=== PATIENT | male | born 1980 | race Caucasian/White ===

== ENCOUNTER → 2017-03-03 | Outpatient (CLI) | payer OTHER ==
--- NOTE | 2017-03-03 18:41 | REP ---
Maxillofacial CT without IV contrast: Axial images are acquired with helical scanning and a reformatted in the coronal projection. There are no comparisons. There is complete opacification of the left frontal sinus, left ethmoid sinus air cells and left maxillary sinus and left nasopharynx. This could be from secretions, polyps or combination. The posterior O medial wall of the left maxillary sinus appears eroded. The left middle turbinate appears eroded. The left ostiomeatal complex is completely opacified and the uncinate process appears eroded. Findings are compatible with chronic left pansinusitis. There is mild mucosal thickening inferiorly in the right maxillary sinus. The right ethmoid sinuses appear clear. The right frontal sinus is clear. The sphenoid sinuses are clear bilaterally. The mastoid air cells are clear bilaterally. The right ostiomeatal complex is patent. The ocular globes and lenses are unremarkable. The periorbital fat is normal bilaterally. The skull base and sella are unremarkable. Impression: Left hand sinusitis, likely chronic. Signed by Lorenzo Hughes MD 03/03/2017 06:32 P
== END ==
LOC: M RAD 17:28
PROVIDERS: ATTEND Otolaryngology
DX: J32.4 Chronic pansinusitis (principal)

== ENCOUNTER → 2017-10-18 | Outpatient (CLI) | payer OTHER | LOC: M RAD 08:58 | DX: J32.4 Chronic pansinusitis (principal) | CPT/HCPCS: 70486 ==

== ENCOUNTER 2017-10-27 07:02 | Day surgery (SDC) | payer OTHER ==
[~2017-10-27 07:02] MED LIST: LR 1,000 ML IV
[2017-10-27] MEDS ORDERED: fentaNYL 100 MCG/2 ML INJECTION (J3010) As Ordered ×2 (08:20→09:25)
[2017-10-27] MEDS ORDERED: MIDAZOLAM INJ 2 MG/2 ML VIAL (J2250) As Ordered (08:21)
[2017-10-27] MEDS ORDERED: LIDOCAINE 2% INJ 100 MG/5 ML SDV (FOR ANES.) As Ordered (08:21)
[2017-10-27] MEDS ORDERED: PROPOFOL 200 MG/20 ML VIAL As Ordered (08:21)
[2017-10-27] MEDS ORDERED: ROCURONIUM BROMIDE 50 MG/5 ML VIAL As Ordered (08:21)
[2017-10-27] MEDS ORDERED: KETOROLAC 60 MG/2 ML VIAL (J1885) As Ordered (08:22)
[2017-10-27] MEDS ORDERED: ONDANSETRON 4MG/2ML VIAL (J2405) As Ordered (08:22)
[2017-10-27] MEDS ORDERED: METOCLOPRAMIDE INJ 10MG/2ML VIAL (J2765) As Ordered (08:22)
[2017-10-27] MEDS ORDERED: dexameTHASONE 4 MG/ML 1ML VIAL (J1100) As Ordered ×3 (08:22→09:32)
[2017-10-27] MEDS: LIDOCAINE W/EPINEPHRINE 1% 20ML VIAL As Ordered (09:53)
[2017-10-27] MEDS: OXYMETAZOLINE NASAL SPRAY (AFRIN) As Ordered ×2 (10:02→10:17)
[2017-10-27] MEDS: METHYLENE BLUE 0.5% (5MG/ML) 10 ML AMP (PROVAYBLUE)(Q9968 PER 1MG) As Ordered (10:04)
[2017-10-27] MEDS: SODIUM CHLORIDE 0.9% NASAL GEL 15GM (AYR) As Ordered (11:20)
[2017-10-27] MEDS: LR 1,000 ML IV (11:45)
[2017-10-27] MEDS: IBUPROFEN 600 MG TAB PO (12:30)
[2017-10-27] MEDS: fentaNYL 100 MCG/2 ML INJECTION (J3010) IV ×4 (12:45→13:00)
[2017-10-27] MEDS: ONDANSETRON 4MG/2ML VIAL (J2405) IV (12:45)
[2017-10-27] MEDS: NORCO, ANEXSIA 5/325MG TABLET (HYDROcodone/ACETAMINOPHEN) PO ×2 (12:45→13:15)
== END 2017-10-27 14:32 | disposition home or self-care (01) ==
LOC: M SDC 07:02
DX: J32.4 Chronic pansinusitis (principal); J34.3 Hypertrophy of nasal turbinates; J33.9 Nasal polyp, unspecified; I10 Essential (primary) hypertension; F17.210 Nicotine dependence, cigarettes, uncomplicated; Z79.899 Other long term (current) drug therapy
CPT/HCPCS: 31254

== ENCOUNTER → 2020-01-07 | Outpatient (CLI) | payer OTHER ==
[~2020-01-07] MED LIST changes: +AMLO1TAB25 PO; +ATOR1TAB21 PO; +FLON1SPR; -LR 1,000 ML IV
== END ==
LOC: M LABSMTC 09:28
PROVIDERS: ATTEND Anesthesiology
DX: Z01.812 Encounter for preprocedural laboratory examination (principal); Z20.828 Contact with and (suspected) exposure to other viral communicable diseases
CPT/HCPCS: C9803; U0002

== ENCOUNTER 2020-01-08 07:58 | Day surgery (SDC) | payer OTHER ==
[~2020-01-08] VITALS: Ht 175.3 cm; Wt 126.1 kg
[~2020-01-08 07:58] MED LIST changes: +LR 1,000 ML IV ONE; +ceFAZolin SOD 1 GM in D5W MINI-BAG PLUS 50 ML IV ONE; +ceFAZolin SOD 2 GM in IV 1 EA IV ONE
[2020-01-08] MEDS ORDERED: MIDAZOLAM INJ 2MG/2ML VIAL (J2250 PER 1MG) As Ordered ONE (08:22)
[2020-01-08] MEDS ORDERED: fentaNYL 100 MCG/2 ML INJECTION (J3010) As Ordered ONE (08:23)
[2020-01-08] MEDS ORDERED: LIDOCAINE 2% 100MG/5ML SDV (FOR ANES.) As Ordered ONE (08:25)
[2020-01-08] MEDS ORDERED: propofoL 200 MG/20 ML VIAL As Ordered ONE ×3 (08:25→12:28)
[2020-01-08] MEDS ORDERED: ACETAMINOPHEN 1000MG 100ML IV BTL (OFIRMEV) (J0131 PER 10MG) As Ordered ONE (10:29)
[2020-01-08] MEDS ORDERED: BUPIVACAINE HCL 0.5% 10ML VIAL As Ordered ONE (10:31)
[2020-01-08] MEDS ORDERED: HYDROmorphone HCL 2 MG/ML 1ML VIAL (J1170) As Ordered ONE (10:33)
[2020-01-08] MEDS ORDERED: ONDANSETRON 4MG/2ML VIAL As Ordered ONE (10:47)
[2020-01-08] MEDS ORDERED: dexameTHASONE 4 MG/ML 1ML VIAL (J1100 PER 1MG) As Ordered ONE (10:47)
[2020-01-08] MEDS ORDERED: METOCLOPRAMIDE INJ 10MG/2ML VIAL (J2765 PER 1) As Ordered ONE (10:47)
[2020-01-08] MEDS ORDERED: SUGAMMADEX SODIUM 500 MG/5 ML VIAL (BRIDION) As Ordered ONE (10:49)
[2020-01-08] MEDS ORDERED: KETOROLAC 60MG 2ML VIAL As Ordered ONE (10:49)
[2020-01-08] MEDS ORDERED: ROCURONIUM BROMIDE 50 MG/5 ML VIAL As Ordered ONE (11:00)
[2020-01-08] MEDS ORDERED: LABETALOL 100MG/20ML VIAL As Ordered ONE (12:11)
[2020-01-08] MEDS ORDERED: HYDROMORPHONE HCL 0.5 MG/ 0.5 ML SYRINGE (J1170 PER 1) IV PRN (13:45)
[2020-01-08] MEDS ORDERED: ONDANSETRON 4MG/2ML VIAL IV PRN (13:45)
[2020-01-08] MEDS ORDERED: oxyCODONE 5MG TAB PO PRN (13:45)
[2020-01-08] MEDS ORDERED: fentaNYL 100 MCG/2 ML INJECTION (J3010) IV PRN (13:45)
[2020-01-08] MEDS ORDERED: LR 1,000 ML IV SCH ×2 (13:45→14:00)
[2020-01-08 15:25] VITALS: BP 145/80
--- NOTE | 2020-01-09 08:18 | RO ---
DATE OF OPERATION: 01/08/2020 PREOPERATIVE DIAGNOSIS: Left distal biceps tendon tear. POSTOPERATIVE DIAGNOSIS: Left distal biceps tendon tear. PROCEDURE: Left distal biceps tendon repair. SURGEON: Alexi Cage M.D. PROPOSAL DIRECTOR: LUKE Marshall ANESTHESIA: General. IV FLUIDS: Lactated ringers. ESTIMATED BLOOD LOSS: 5 mL. IMPLANTS: Arthrex Distal Biceps Button x1. CLOSURE: Monocryl and Steri-Strips. DESCRIPTION OF PROCEDURE: Patient was identified in the preoperative holding area. The left arm was marked. He was brought to the operating room and placed supine on a well-padded OR table. General anesthesia was induced. The left arm was then prepped and draped in the normal sterile fashion with ChloraPrep. He received appropriate IV antibiotics within one hour of the incision. A time-out was then performed per hospital protocol. Alma Little was present for the entire procedure and participated in all essential portions of the procedure. This included patient positioning and draping, holding the arm, holding the retractors carefully, helping to keep the forearm supinated. She also assisted with whip stitching the tendon and assisted with wound closure. Given that the tendon had retracted well proximal to the elbow flexion crease and the injury was over three weeks old, I elected to start with a 2-cm transverse incision three finger breadths proximal to the elbow flexion crease, subcutaneous dissection with Metzenbaum scissors. Fascia was carefully opened and the biceps tendon was identified. The stump had extreme tendinopathy. The Arthrex distal biceps repair kit was then opened. The tip of the tendon was trimmed down to fit through a size 7 and then I placed a running locking whip stitch with the FiberLoop with 3 cm of tendon whip stitched. I then applied steady distal traction and the Metzenbaum scissors were used to release some of the biceps tendon sheath. I was able to gain excellent excursion on the tendon with no need for allograft. A sterile tourniquet was then opened and applied and then inflated. The arm had been exsanguinated with an Esmarch bandage. The tourniquet was inflated to 250 mmHg. A transverse incision was made with a #15 blade three finger breadths distal to the elbow flexion crease. With careful dissection through subcutaneous tissue, the lateral antebrachial cutaneous nerve was identified and protected throughout the case. Deep fascia was carefully opened with scissors and then blunt finger dissection down to the greater tuberosity with the forearm in supination. The [place] elevator was used to release scar tissue at the tuberosity and a seroma was encountered and drained. Then, the [place] elevator was used to palpate the borders of the radial tuberosity and the spade-tipped drill bit was drilled unicortically. The mini C-arm was used to confirm appropriate position and I had to reposition the guidewire further radial, as it was at the extreme ulnar aspect. Now, the guidewire was drilled bicortically and the 7-mm [place] reamer was used to create a unicortical socket. I then extensively irrigated the surgical field to prevent heterotopic bone formation. A passing suture was used to pass the sutures from the biceps tendon from the [id number] incisions. It was loaded through the biceps button per routine. Retractors were positioned to expose the drill hole and then the button was passed through the drill hole on its packing machine can feeder. Sutures were toggled which flipped the button. The elbow was then flexed to 15 and the tendon was docked into the socket nicely. The mini C-arm was used to confirm appropriate position of the button and a well positioned drill hole. I then reirrigated the incision and then with elbow in 50 of flexion, I retensioned the sutures and then they were tied by hand. The curve-free needle was then used to pass one limb of the suture back through the tendon and additional knots were tied to double lock the construct. Excess sutures were trimmed and discarded and I then extensively irrigated. The tendon was nicely secured. The proximal incision was also irrigated. Proximally, the fascia was closed with 2-0 Vicryl, followed by a Monocryl and Steri-Strips. Distally, the deep fascia was reapproximated taking care to not cause any tension on the lateral antebrachial cutaneous nerve, which was noted to still be in continuity at the end of the case, then 2-0 Vicryl subcuticular closure, followed by a running Monocryl and Steri-Strips. I injected 6 mL of 0.5% Marcaine without epinephrine. Sterile dressings were applied. He was then carefully placed into a long arm posterior splint with the elbow at 90 of flexion. He was extubated and transferred to the PACU in stable condition and noted to be firing EPL, EDC, and FPL. CATRACHITO
--- NOTE | 2020-01-10 08:04 | ECGEPIP ---
[facility] Test Date: 2020-01-08 Pat Name: DANDRE SALAZAR Department: Room: - Gender: Male Reading Efficiency Course Director: [facility] : 1980 Requested By: Jorgito Garcia Order Number: [id number] Reading MD: Joe Carlisle Measurements Intervals [place] Rate: 81 P: 38 [place]: 170 QRS: -10 QRSD: 108 T: 15 QT: 355 QTc: 412 Interpretive Statements SINUS RHYTHM Electronically Signed on 01-10-2020 8:04:55 EDT by Joe Carlisle
== END 2020-01-08 14:45 | disposition home or self-care (01) ==
LOC: M SDC 07:58
PROVIDERS: ATTEND Orthopaedic Surgery
DX: S46.212A Strain of muscle, fascia and tendon of other parts of biceps, left arm, initial encounter (principal); X58.XXXA Exposure to other specified factors, initial encounter; Y92.89 Other specified places as the place of occurrence of the external cause; Y93.9 Activity, unspecified; Y99.9 Unspecified external cause status; I10 Essential (primary) hypertension; E78.5 Hyperlipidemia, unspecified; F17.218 Nicotine dependence, cigarettes, with other nicotine-induced disorders; Z79.899 Other long term (current) drug therapy
CPT/HCPCS: 24342; 93005; C1713; J0131; J0690; J1100; J1170; J1885; J2250; J2405; J2765; J3010

== ENCOUNTER 2023-02-17 10:17 | Emergency (ER) | payer OTHER, SELFPAY ==
[~2023-02-17] VITALS: Ht 175.3 cm; Wt 131.8 kg
[~2023-02-17 10:17] MED LIST changes: -LR 1,000 ML IV ONE; -ceFAZolin SOD 1 GM in D5W MINI-BAG PLUS 50 ML IV ONE; -ceFAZolin SOD 2 GM in IV 1 EA IV ONE
[2023-02-17] MEDS ORDERED: BENZOCAINE 20% GEL 9GM TUBE (ANBESOL MAX STRENGTH) TOP ONE (12:45)
[2023-02-17] MEDS ORDERED: LIDOCAINE 2% W/ EPINEPHRINE 1.7 ML DENTAL INJ SM ONE (12:45)
[2023-02-17] MEDS ORDERED: KETOROLAC 30 MG/ML 1ML VIAL IM ONE (12:45)
[2023-02-17] MEDS ORDERED: AMOX875T2 PO (13:53)
[2023-02-17] MEDS ORDERED: KETO10TAB PO (13:53)
[2023-02-17 13:59] VITALS: BP 155/98; TEMP 98.1; O2SAT 98
== END 2023-02-17 14:01 | disposition home or self-care (01) ==
LOC: M ED 10:17
DX: K08.89 Other specified disorders of teeth and supporting structures (principal); Z88.5 Allergy status to narcotic agent; F17.200 Nicotine dependence, unspecified, uncomplicated
CPT/HCPCS: 64400; 96374; 99283; J1885